=== PATIENT | male | born 2000 | race Caucasian/White ===

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

== ENCOUNTER 2022-06-13 23:06 | Emergency (ER) | payer OTHER ==
[~2022-06-13] VITALS: Ht 162.6 cm; Wt 82.5 kg
[2022-06-13 23:15] VITALS: BP 134/82
== END 2022-06-14 00:22 | disposition home or self-care (01) ==
LOC: ER 23:06
DX: N36.8 Other specified disorders of urethra (principal)
CPT/HCPCS: 99282

== ENCOUNTER 2024-05-24 11:53 | Emergency (ER) | payer OTHER ==
[~2024-05-24] VITALS: Ht 165.1 cm; Wt 72.6 kg
[~2024-05-24 11:53] MED LIST changes: +CEPH500 PO
[2024-05-24 12:00] VITALS: BP 132/97
[2024-05-24 12:30] LABS: CORONAVIRUS COVID-19 AG Negative (NEGATIVE); INFLUENZA A AG Negative (NEGATIVE); INFLUENZA B AG Negative (NEGATIVE)
== END 2024-05-24 13:34 | disposition home or self-care (01) ==
LOC: ER 11:53
PROVIDERS: Physician Assistant
DX: J02.9 Acute pharyngitis, unspecified (principal); R09.81 Nasal congestion
CPT/HCPCS: 87081; 87147; 87428-QW; 87430; 99283